=== PATIENT | female | born 1975 | race Caucasian/White ===

== ENCOUNTER 2017-07-23 15:31 | Emergency (ER) | payer SELFPAY ==
[2017-07-23] MEDS ORDERED: Ketorolac Tromethamine 30 MG/ML VIAL ONE (16:12)
[2017-07-23] MEDS ORDERED: Ondansetron ODT 4 MG TAB ONE (16:12)
[2017-07-23 16:21] LABS: #Basophils 0.1 thou/uL (0.0-0.2); #Eosinphils 0.3 thou/uL (0.0-0.7); #Lymphocytes 4.5 thou/uL (1.20-3.40); #Monocytes 0.6 thou/uL (0.11-0.59); #Neutrophils 3.9 thou/uL (1.40-6.50); %Basophils 0.7 % (0.0-1.0); %Eosinophils 3.2 % (0.0-10.0); %Lymphocytes 47.9 % (21.0-51.0); %Monocytes 6.1 % (0.0-10.0); %Neutrophils 42.1 % (42.0-75.0); Hemoglobin 11.6 g/dL (12.0-16.0); Mean Corpuscular HGB CONC 32.5 g/dL (32.0-36.0); Mean Corpuscular Hemoglobin 28.5 pg (27.0-31.0); Mean Corpuscular Volume 87.6 fl (81.0-99.0); Mean Platelet Volume 6.8 fL (7.4-10.4); Platelet Count 284 thou/uL (130-400); RBC Distribution Width 12.7 % (11.5-14.5); Red Blood Cell (RBC) Count 4.08 mill/uL (4.20-5.40); White Blood Cell (WBC) Count 9.4 thou/uL (4.8-10.8)
[2017-07-23 16:39] LABS: ALT (SGPT) 64 U/L (8-55); AST (SGOT) 37 U/L (5-34); Albumin 4.1 g/dL (3.5-5.0); Alkaline Phosphatase 96 U/L (40-150); Anion Gap 16 mmol/L (10-20); BUN (Urea Nitrogen) 10 mg/dL (7.0-18.7); Bilirubin, Total 0.2 mg/dL (0.2-1.2); Calc. Creatinine Clearance 0 mL/min (70-130); Calcium 9.2 mg/dL (7.8-10.44); Carbon Dioxide 25 mmol/L (22-29); Chloride 103 mmol/L (98-107); Estimated GFR-MDRD Greater than 90; Globulin 2.9 g/dL (2.4-3.5); Glucose 118 mg/dL (70-105); Sodium 140 mmol/L (136-145)
--- NOTE | 2017-07-23 16:55 | RAD ---
RADIOGRAPH LEFT ELBOW 4 VIEWS: 07/23/17 HISTORY: 41-year-old female with left elbow pain. FINDINGS: No evidence of joint effusion. Joint spaces are maintained without erosions or osteophytes. No perios teal elevation or destructive osseous lesion. No fracture or dislocation. No soft tissue calcificatio n. IMPRESSION: Normal. POS: [facility]
== END 2017-07-23 17:25 | disposition home or self-care (01) ==
LOC: MADERS 15:31
DX: M75.22 Bicipital tendinitis, left shoulder (principal); E78.5 Hyperlipidemia, unspecified; I10 Essential (primary) hypertension; Z87.891 Personal history of nicotine dependence; Z79.899 Other long term (current) drug therapy; Z79.84 Long term (current) use of oral hypoglycemic drugs
CPT/HCPCS: 36415; 80053; 85025; 85652; 96372; J1885; Q0162

== ENCOUNTER 2017-10-21 17:21 | Emergency (ER) | payer SELFPAY ==
[2017-10-21] MEDS ORDERED: Dexamethasone 4 MG TAB ONE (18:31)
--- NOTE | 2017-10-21 19:06 | RAD ---
RIGHT SHOULDER THREE VIEWS: HISTORY: Injury with pain to right shoulder. FINDINGS: No evidence of fracture or dislocation. There is a small lucency seen in the scapula, near the scapular neck. This is well circumscribed and has a benign appearance. IMPRESSION: No acute fracture or dislocation. There is a small, 6 mm cyst in the scapula, near the scapular neck , which has a benign appearance. If there is unexplained pain within the scapula at this location, r ecommend a follow-up elective MRI examination. POS: [facility]
== END 2017-10-21 18:38 | disposition home or self-care (01) ==
LOC: MADERS 17:21
DX: M25.511 Pain in right shoulder (principal); E11.9 Type 2 diabetes mellitus without complications; E78.5 Hyperlipidemia, unspecified; I10 Essential (primary) hypertension; Z87.891 Personal history of nicotine dependence; Z79.899 Other long term (current) drug therapy; W19.XXXA Unspecified fall, initial encounter
CPT/HCPCS: J8540

== ENCOUNTER 2020-07-17 23:12 | Emergency (ER) | payer SELFPAY ==
[~2020-07-17 23:12] MED LIST: Iopamidol 370 76% 100 ML VIAL ONE
[2020-07-17] MEDS ORDERED: Sodium Chloride 0.9% 1,000 ML ONE (23:46)
[2020-07-17] MEDS ORDERED: Fentanyl 100 MCG/2 ML VIAL ONE (23:46)
[2020-07-17] MEDS ORDERED: Ondansetron ODT 4 MG TAB ONE (23:46)
[2020-07-17] MEDS ORDERED: Ondansetron PF 4 MG/2 ML Vial ONE (23:47)
--- NOTE | 2020-07-18 00:02 | RAD ---
Radiograph left shoulder 3 views: 07/17/2020 11:59 PM-12 midnight HISTORY: 44-year-old female with acute traumatic left shoulder pain FINDINGS: No evidence of fracture. No dislocation. IMPRESSION: Negative
--- NOTE | 2020-07-18 07:38 | CT ---
PRELIMINARY REPORT/[facility]/EMERGENCY AFTER HOURS PROCEDURE CT abdomen and pelvis with contrast: Comparison: None Findings: No significant abnormality in the lung bases. Normal gallbladder. No biliary ductal dilatation. No hydronephrosis or symptomatic urinary calculus. The solid organs and vasculature are otherwise normal. No bowel obstruction, free fluid, free air, abscess or diverticulitis. Normal appendix. Absent uterus. Normal urinary bladder. Impression: No acute abnormality. No definite cause for symptoms identified. ELECTRONICALLY SIGNED BY: Yomi Cortez MD Jul 18, 2020 12:46:00 AM [employer] This report is intended for review by the ordering physician only, in accordance of law. If you recei ve this report in error, please call [facility] at [phone]. FINAL REPORT CT Abdomen Pelvis Trauma History: Injury Comparison: None. Findings: Lung bases are clear. No pericardial effusion. The lower ribs are intact. 11 mm nodule left adrenal gland. Diffuse hepatic steatosis. No mesenteric hematoma. No free intraperitoneal gas or fluid. Aortic contour is normal. Possible transversely oriented contusion of the lower anterior abdominal wall. No lumbosacral spine injury. Impression: 1. Majority of the findings are concordant with the initial report. 2. 11 mm left adrenal nodule for which nonemergent follow-up adrenal protocol CT or MRI is recommende dNilam Transcribed Date/Time: 07/18/2020 7:48 AM
== END 2020-07-18 01:13 | disposition home or self-care (01) ==
LOC: MADERS 23:12
DX: S31.119A Laceration without foreign body of abdominal wall, unspecified quadrant without penetration into peritoneal cavity, initial encounter (principal); S43.402A Unspecified sprain of left shoulder joint, initial encounter; E11.9 Type 2 diabetes mellitus without complications; E78.5 Hyperlipidemia, unspecified; E78.00 Pure hypercholesterolemia, unspecified; I10 Essential (primary) hypertension; Z87.891 Personal history of nicotine dependence; Z86.73 Personal history of transient ischemic attack (TIA), and cerebral infarction without residual deficits; Z79.899 Other long term (current) drug therapy; Z79.84 Long term (current) use of oral hypoglycemic drugs; W18.30XA Fall on same level, unspecified, initial encounter
CPT/HCPCS: 74177; 96374; 96375; J2405; J3010; J7050; Q0162; Q9967